=== PATIENT | male | born 2000 | race African-American/Black ===

== ENCOUNTER 2023-11-07 14:04 | Inpatient (IN) ==
--- NOTE | 2023-11-07 14:36 | Emergency Department Note ---
History of Present Illness General Chief complaint: Mental Health Evaluation Stated complaint: REQUESTING PSYCH EVAL Time Seen by Provider: 11/07/23 14:12 History of Present Illness Provider complaint: Mental health evaluation -year-old male presents the emergency department for mental health evaluation. Patient states he has been having suicidal ideations. Patient denies any plan. Patient reports he has been using cannabis. No other drugs or alcohol. No access to any firearms. Patient states he tried to cut his left upper extremity in an attempt to self-harm 2 days ago. Home Medications Medication Instructions Recorded Confirmed Type Amina 180 mg PO 1XD 11/07/23 11/07/23 History Past Med/Surg History Medical History No pertinent family history Bipolar disorder Surgical History No pertinent past surgical history Social History Smoking Status: Current every day smoker Tobacco Type: E-cigarettes / Vaping Preferred Language: Pakistani Feels Safe at Home: Yes Gender Identity: Male Physical Exam Vital Signs Vital Signs - 24 hr 11/07/23 14:08 11/07/23 16:05 Temperature 35.7 C L 36.8 C Temperature Source Temporal Artery Scan Oral Pulse Rate 93 H Pulse Rate [Radial] 74 Pulse Rhythm [Radial] Regular Pulse Strength [Radial] Normal Respiratory Rate 18 18 Respiratory Effort / Characteristics Non-Labored Respiratory Depth Normal Blood Pressure 149/90 H Blood Pressure [Left Arm] 128/74 Blood Pressure Mean 109 Blood Pressure Mean [Left Arm] 92 Pulse Oximetry 98 99 Oxygen Delivery Method Room Air Room Air Sepsis Recent Fever Within 48 Hours No Sepsis New/Unexplained Change in Mental Status No Sepsis Action Taken by Nursing No Action Required Physical Exam GENERAL: oriented to person, place, and time. appears well-developed and well- nourished. HENT: Exam performed. - Head: Normocephalic and atraumatic. EYES: Conjunctivae and EOM are normal. Right eye exhibits no discharge. Left eye exhibits no discharge. No scleral icterus. NECK: Normal range of motion. Neck supple. No JVD present. CV: Normal rate, regular rhythm, normal heart sounds and intact distal pulses. There is no peripheral edema. Palpable radial pulses bue. PULM/CHEST: Effort normal and breath sounds normal. No respiratory distress. No stridor. no wheezes. no rales. ABD: The abdomen is soft. There is no tenderness. NEURO: Motor and sensation grossly intact. SKIN: Abrasions to left upper extremity. PSYCH: Suicidal ideation. Course Course 141: The patient was evaluated in room A7. A complete history and physical exam was performed 1740: Vital signs stable. Patient medically cleared. Patient accepted to 3 S. Administered Medications Nicotine (Nicotine 14 Mg/24 Hr Patch) [facility] [place]: 12/07/23 15:59 Last Admin: 11/07/23 16:44 Dose: 14 mg Documented By: HARDEEP Medical Decision Making Laboratory Data Attestation: I reviewed the patient's lab results. 11/07/23 14:35 11/07/23 14:35 Lab Results 11/07/23 11/07/23 Range/Units 14:21 14:35 WBC 7.71 (4.8-10.8) K/ul RBC 5.69 (4.70-6.10) M/uL Hgb 16.3 (14.0-18.0) g/dl Hct 47.8 (42.0-52.0) % MCV 84.0 (80.0-100.0) fL MCH 28.6 (25.0-34.0) pg MCHC 34.1 (32.0-36.0) g/dL RDW Std Deviation 38.6 (36.4-46.3) fL RDW Coeff of Laury 12.6 (11.5-14.5) % Plt Count 273 (130-400) K/uL MPV 11.1 (9.4-12.4) fL Immature Gran % (Auto) 0.5 % Neut % (Auto) 52.3 % Lymph % (Auto) 38.3 % Creek % (Auto) 6.7 % Eos % (Auto) 1.6 % Baso % (Auto) 0.6 % Neut # (Auto) 4.03 (1.40-6.50) K/uL Lymph # (Auto) 2.95 (1.20-3.40) K/uL Creek # (Auto) 0.52 (0.11-0.59) K/uL Eos # (Auto) 0.12 (0.00-0.50) K/uL Baso # (Auto) 0.05 (0.00-0.20) K/uL Immature Gran # (Auto) 0.04 (0.01-0.20) K/uL Sodium 137 (136-145) mmol/L Potassium 3.9 (3.5-5.1) mmol/L Chloride 103 (98-107) mmol/L Carbon Dioxide 25 (21-32) mmol/L Anion Gap 9 (3-11) BUN 12 (6-23) mg/dl Creatinine 0.91 (0.6-1.4) mg/dl Est Cr Clr Drug Dosing 176.6 ml/min Est GFR ( Amer) 137.2 ml/min Est GFR (Non-Af Amer) 118.4 ml/min BUN/Creatinine Ratio 13.2 (10-20) Glucose 150 H (70-99(Fasting)) mg/dl Calcium 9.6 (8.6-10.3) mg/dl Total Bilirubin 0.5 (0.2-1.0) mg/dl AST 74 H (13-39) U/L ALT 140 H (7-52) U/L Alkaline Phosphatase 99 (34-104) U/L Total Protein 7.3 (6.0-8.3) gm/dl Albumin 4.6 (3.4-5.0) gm/dl Globulin 2.7 (2.5-4.0) gm/dl Albumin/Globulin Ratio 1.7 (0.9-2) TSH 3.088 (0.300-4.500) uIu/ml Urine Color Dark Yellow Urine Appearance Clear (Clear) Urine pH 5.5 (4.5-7.5) Ur Specific Petroleum 1.030 (1.000-1.030) Urine Protein Trace H (Negative) Urine Glucose (UA) Negative (Negative) Urine Ketones Negative (Negative) Urine Blood Negative (Negative) Urine Nitrite Negative (Negative) Urine Bilirubin Negative (Negative) Urine Urobilinogen Negative (Negative) Ur Leukocyte Esterase Negative (Negative) Urine WBC (Auto) 1-5 (0-5) /hpf Urine RBC (Auto) 0-4 (0-4) /hpf U Hyaline Cast (Auto) 1-5 (0-5) /lpf U Epithel Cells (Auto) 10-20 H (0-5) /lpf Urine Bacteria (Auto) Negative (Negative) Salicylates < 3.0 L (3.0-30) mg/dl Urine Opiates Screen Neg (Neg) Ur Methadone, Qual Neg (Neg) Acetaminophen < 3 L (10-30) ug/ml Urine Barbiturates Neg (Neg) Ur Phencyclidine (PCP) Neg (Neg) U Amphetamin/Meth Scrn Neg (Neg) MDMA (Ecstasy) Screen Neg (Neg) U Benzodiazepines Scrn Neg (Neg) Ur Cocaine Metabolite Neg (Neg) U Marijuana (THC) Screen Pos H (Neg) Ethyl Alcohol mg/dL < 10.0 (<10.0) mg/dl SARS-CoV-2, RNA, NAAT NEGATIVE (NEGATIVE) MDM Narrative 1412: The patient was evaluated in room A7. A complete history and physical exam was performed 1740: Vital signs stable. Patient medically cleared. Patient accepted to 3 S. Impression & Plan Bipolar disorder, Depression with suicidal ideation Discharge Plan Visit Data Chief Complaint: Mental Health Evaluation Stated Complaint: REQUESTING PSYCH EVAL ED Provider: Jose A Goodman Discharge Problem: Bipolar disorder, Depression with suicidal ideation Patient Disposition: Admitted As Inpatient Discharge Instructions Interventions: ED Discharge Assessment Last Done: 11/07/23 17:44
[2023-11-07 14:45] LABS: Appearance Urine Clear (Clear); Bacteria Urine Automated Negative (Negative); Bilirubin Urine Negative (Negative); Blood Urine Negative (Negative); Color Urine Dark Yellow; Glucose Urine UA Negative (Negative); Ketones Urine Negative (Negative); Leukocyte Esterase Urine Negative (Negative); Nitrite Urine Negative (Negative); Protein Urine Trace (Negative); RBC Urine Automated 0-4 /hpf (0-4); Urobilinogen Urine Negative (Negative); pH Urine 5.5 (4.5-7.5)
[2023-11-07 15:07] LABS: Amphetamines+Metham, Urine Neg (Neg); Barbiturates, Urine Neg (Neg); Benzodiazepine, Urine Neg (Neg); Cocaine, Urine Neg (Neg); MDMA (Ecstacy), Urine Neg (Neg); Marijuana, Urine Pos (Neg); Methadone, Urine Neg (Neg); Opiate, Urine Neg (Neg); Phencyclidine, Urine Neg (Neg)
[2023-11-07 15:16] LABS: Basophils # (auto) 0.05 K/uL (0.00-0.20); Basophils % (auto) 0.6 %; Eosinophils # (auto) 0.12 K/uL (0.00-0.50); Eosinophils % (auto) 1.6 %; Hematocrit (blood only) 47.8 % (42.0-52.0); Hemoglobin 16.3 g/dl (14.0-18.0); Immature Granulocytes # (auto) 0.04 K/uL (0.01-0.20); Immature Granulocytes % (auto) 0.5 %; Lymphocytes # (auto) 2.95 K/uL (1.20-3.40); Lymphocytes % (auto) 38.3 %; Mean Corpuscular Hemoglobin 28.6 pg (25.0-34.0); Mean Corpuscular Hgb Conc 34.1 g/dL (32.0-36.0); Mean Platelet Volume 11.1 fL (9.4-12.4); Monocytes # (auto) 0.52 K/uL (0.11-0.59); Monocytes % (auto) 6.7 %; Neutrophils # (auto) 4.03 K/uL (1.40-6.50); Neutrophils % (auto) 52.3 %; Platelet Count 273 K/uL (130-400); RDW Coefficient of Variation 12.6 % (11.5-14.5); RDW Standard Deviation 38.6 fL (36.4-46.3); Red Blood Count 5.69 M/uL (4.70-6.10); White Blood Count 7.71 K/ul (4.8-10.8)
[2023-11-07 15:21] LABS: Albumin Globulin Ratio 1.7 (0.9-2); Albumin Level 4.6 gm/dl (3.4-5.0); BUN Creatinine Ratio 13.2 (10-20); Bilirubin,Total 0.5 mg/dl (0.2-1.0); Calcium 9.6 mg/dl (8.6-10.3); Creatinine Clr Calc Pharmacy 176.6 ml/min; Est GFR (African American) 137.2 ml/min; Est GFR (Non-African American) 118.4 ml/min; Globulin 2.7 gm/dl (2.5-4.0); Potassium 3.9 mmol/L (3.5-5.1); Total Protein 7.3 gm/dl (6.0-8.3)
[2023-11-07 15:29] LABS: Acetaminophen < 3 ug/ml (10-30); Salicylate < 3.0 mg/dl (3.0-30)
[2023-11-07 15:36] LABS: Thyroid Stimulating Hormone 3.088 uIu/ml (0.300-4.500)
[2023-11-07] MEDS: NICOTINE 14 MG/24 HR PATCH TD SCH (16:44)
[2023-11-07] MEDS ORDERED: ACETAMINOPHEN 325 MG TAB PO PRN (18:03)
[2023-11-07] MEDS ORDERED: hydrOXYzine HCl 25 MG TAB PO PRN (18:03)
[2023-11-07] MEDS ORDERED: ALUMINUM/MAGNESIUM SUSP 30 ML UDC PO PRN (18:03)
[2023-11-07] MEDS ORDERED: BISMUTH SUBSALICYLATE LIQD 236 ML PO PRN (18:03)
[2023-11-07] MEDS ORDERED: MAGNESIUM HYDROXIDE SUSP 30 ML UDC PO PRN (18:03)
[2023-11-07] MEDS ORDERED: SODIUM CHLORIDE 0.65% NA SOLN 45 ML (OCEAN) PRN (18:03)
[2023-11-07] MEDS ORDERED: NICOTINE POLACRILEX 2 MG GUM MT PRN (19:15)
[2023-11-07] MEDS: hydrOXYzine HCl 25 MG TAB PO PRN (22:53)
--- OUTSIDE RECORDS SUMMARY | 2023-11-08 07:19 | External Medical Summary | Continuity of Care Document ---
Author Name Unknown Organization [place] [id number] [place] [phone] Care Team Providers Care Silk Printer Name Role Phone LuisaroxanneTeMarcy Primary Care Physician [phone] [facility] [id number] Date(s): 09/23/23 - 09/23/23 [facility] [address] [address] [phone] Encounter Diagnosis Body mass index [BMI] 34.0-34.9, adult(Discharge Diagnosis) - 09/23/23 Discharge Disposition: Home or Self Care Attending Physician: MD Cornell, Manuel Song Allergies, Adverse Reactions, Alerts No Known Medication Allergies Medications ARIPiprazole 10 mg oral tablet Start: 07/14/23 11:31:00 EST, 1 tab, PO, Daily, Disp# 30 tab, Refills: 1, Pharmacy: [facility] Start Date: 07/14/23 Stop Date: 09/12/23 Status: Ordered buPROPion 300 mg/24 hours (XL) oral tablet, extended release Start: 08/02/23 10:26:00 EST, 1 tab, PO, q24h, Disp# 30 tab, Refills: 3, TAKE 1 TABLET BY MOUTH EVERY DAY, Pharmacy: [facility] Start Date: 08/02/23 Stop Date: 11/30/23 Status: Ordered Descovy Blister Pack 200 mg-25 mg oral tablet Start: 06/14/23 9:46:00 EDT, 1 tab, PO, Daily, Disp# 90 tab, Refills: 1, Pharmacy: [facility] Start Date: 06/14/23 Status: Ordered famotidine Start: 07/14/23 10:37:00 EST Start Date: 07/14/23 Status: Ordered hydrOXYzine hydrochloride 50 mg oral tablet Start: 07/14/23 11:33:00 EST, 1 tab, PO, bid, Disp# 60 tab, Refills: 1, PRN: as needed for anxiety,Pharmacy: [id number] Start Date: 07/14/23 Stop Date: 09/12/23 Status: Ordered Zofran 4 mg oral tablet Start: 08/02/23 10:26:00 EST, 1 tab, PO, Daily, Disp# 14 tab, Pharmacy: [id number] Start Date: 08/02/23 Stop Date: 08/16/23 Status: Ordered Mental Status 09/23/23 Barriers to Learning one year None evide nt Mandatory Health Literacy Documentation Yes Health Literacy Communication Barriers N ever Primary Language Danish Problem List Condition Confirmation Course Effective Dates Status Health St atus Informant Anxiety Confirmed Active Bipolar disorder Confirmed Active GERD without esophagitis Confirmed Active Chronic nausea Confirmed Active Tobacco user Confirmed Active Diagnosis Diagnosis Type Effective Dates Health Status Cl inical Service Informant Body mass index [BMI] 34.0-34.9, adult Discharge Diagnosis 09/23/23 Non-Specified Procedures Procedure Date Related Diagnosis Body Site Status REMOVAL OF TONSILS Comple wayne Vital Signs Most recent to oldest [Reference Range]: 1 Height 190.9 cm (09/23/23 8:31 AM) Patient Weight 124 kg (09/23/23 8:31 AM) Body Mass Index 34.03 kg/m2 (09/23/23 8:31 AM) Temperature [36.5-37.9 DegC] 37.0 DegC (09/23/23 8:31 AM) Heart Rate 95 bpm (09/23/23 8:31 AM) Respiratory Rate 18 br/min (09/23/23 8:31 AM) Blood Pressure 138/92mmHg (09/23/23 8:31 AM) Cuff Pulse Pressure 46 mmHg (09/23/23 8:31 AM) Social History Social History Type Response Smoking Status Never smoked cigaret mirza Sex Male Patient Care team information Care Team Personnel Name: DO Lorenzo Amanda Position: Resident Member Role: Lifetime Relationship Address: Address: [address] [address] [place] Name: DO Ricketts Sameer Position: Resident Member Role: Lifetime Relationship Address: Address: [address] [address] [place] Care Team Related Persons Name: ELICEO JOHN Address: home [address] [facility], [address]
--- OUTSIDE RECORDS SUMMARY | 2023-11-08 07:19 | External Medical Summary | Continuity of Care Document ---
Author Name Unknown Organization [place] [address] [address] [place] [phone] [facility] [id number] Date(s): 06/14/23 - 06/14/23 [facility] [address] [facility] [address] [facility] [address] [place] [address] [phone] Encounter Diagnosis Body mass index [BMI] 34.0-34.9, adult(Discharge Diagnosis) - 06/14/23 Medication monitoring encounter(Discharge Diagnosis) - 06/14/23 Sexual behavior with high risk of exposure to communicable disease(Discharge Diagnosis) - 06/14/23 Encounter for therapeutic drug level monitoring(Final) - Other specified personal risk factors, not elsewhere classified(Final) - High risk heterosexual behavior(Final) - Obesity, unspecified(Final) - At risk for HIV due to bisexual contact(Discharge Diagnosis) - 06/14/23 Skin lesion of right leg(Discharge Diagnosis) - 06/14/23 Obesity(Discharge Diagnosis) - 06/14/23 Bipolar disorder(Discharge Diagnosis) - 06/14/23 Discharge Disposition: Home or Self Care Attending Physician: MD Melton Christopher Assessment and Plan Extracted from: Title:Establish: PrEP, Skin Lesion Author:Isamar fernandez DO, Amanda Date:06/14/23 1.At risk for HIV due to b isexual contact Chronic condition, stable Goal:_ Data:_ Plan: _PreP labs ordered and order placed for Descovy. Pt opting to wait until lab results return to start Descovy. 2.Skin lesion of right leg Chronic condition, stable Goal:_ Data:_ Plan: Appears to be a dermatofibroma, benign lesion. Advised he can try OTC lotions or vitamin E oil to soften the area, but no medical interventions like biopsy would be needed. 3.Obesity Chronic condition, stable Goal:_ Data:_ Plan: _Referral placed to field case manager to discuss weight loss lifestyle changes. Pt inquired about medication options and informed that should try lifestyle first before considering medication options 4.Bipolar disorder Chronic condition, stable Goal:_ Data:_ Plan: _Continue current regime Pt to f/u in 1-2 weeks to discuss nausea/gagging since mono 1 year ago Medications ARIPiprazole 5 mg oral tablet TAKE 1 TABLET BY MOUTH EVERY DAY Start Date: 06/14/23 Status: Ordered buPROPion 300 mg/24 hours (XL) oral tablet, extended release TAKE 1 TABLET BY MOUTH EVERY DAY Start Date: 06/14/23 Status: Ordered cloNIDine 0.1 mg oral tablet 1 tab, PO, Daily, TAKE 1 TABLET BY MOUTH AT BEDTIME Start Date: 06/14/23 Status: Ordered Descovy Blister Pack 200 mg-25 mg oral tablet Start: 06/14/23 9:46:00 EDT, 1 tab, PO, Daily, Disp# 90 tab, Refills: 1, Pharmacy: [id number] Start Date: 06/14/23 Status: Ordered Mental Status 06/14/23 Barriers to Learning one year None evide nt Mandatory Health Literacy Documentation Yes Health Literacy Communication Barriers N ever Primary Language Latvian Problem List Condition Confirmation Course Effective Dates Status Health St atus Informant Bipolar disorder Confirmed Active GERD without esophagitis Confirmed Active Diagnosis Diagnosis Type Effective Dates Health Status Clinical Service Informant Body mass index [BMI] 34.0-34.9, adult Discharge Diagnosis 06/14/23 Non-Specified Bipolar disorder Discharge Diagnosis 06/14/23 Obesity Discharge Diagnosis 06/14/23 Non-Specified At risk for HIV due to bisexual contact Discharge Diagnosis 06/14/23 Non-Specified Medication monitoring encounter Discharge Diagnosis 06/14/23 Non-Specified Sexual behavior with high risk of exposure to communicable disease Discharge Diagnosis 06/14/23 Non-Specified Skin lesion of right leg Discharge Diagnosis 06/14/23 Procedures Procedure Date Related Diagnosis Body Site Status REMOVAL OF TONSILS Comple wayne Results Laboratory List Name Date Basic Metabolic Panel (BASIC METAB PANEL ) 06/14/23 Chlamydia and Gonorrhoeae, by PCR (CT AN D GC BY PCR) 06/14/23 Complete Blood Count w Differential (CBC ,DIFFH) 06/14/23 HIV Screen w Reflex (HIV AG/AB SCREENING ) 06/14/23 Hepatitis B Surface Antibody (HEP B SURF AB) 06/14/23 Hepatitis C Antibody (HEP C AB) 06/14/23 Lipid Profile (LIPOPROTEINS) 06/14/23 Thyroid Stimulating Hormone (TSH) Treponemal Ab Screen (TREPONEMAL AB SCRE EN) 06/14/23 Most recent to oldest [Reference Range]: 1 eGFR CKD-EPI [>60 mL/min/1.73 m2] >90 mL /min/1.73 m2 1 (06/14/23 10:20 AM) Chlamydia trachomatis, by PCR [NEG] NEGA TIVE 2 *Unknown* (06/14/23 10:20 AM) Neisseria gonorrhoeae, by PCR [NEG] NEGA TIVE 3 *Unknown* (06/14/23 10:20 AM) HIV Ag/Ab Screening [NR] NONREACTIVE *Unknown* (06/14/23 10:20 AM) Non-HDL 211 mg/dL 4 (06/14/23 10:20 AM) HBsAb Concentration [NR mIU/mL] 48.7 mIU /mL 5 *Abnormal* (06/14/23 10:20 AM) Estimated CrCl 154.48 mL/min (06/14/23 12:17 PM) Treponemal Ab Screen [NR] NONREACTIVE *Unknown* (06/14/23 10:20 AM) MPV [9.0-12.2 fL] 11.1 fL (06/14/23 10:20 AM) Immature Gran% 0.4 % (06/14/23 10:20 AM) Neut% 45.0 % (06/14/23 10:20 AM) Lymph% 41.4 % (06/14/23 10:20 AM) Labette% 10.7 % (06/14/23 10:20 AM) Baso% 0.3 % (06/14/23 10:20 AM) Eos% 2.2 % (06/14/23 10:20 AM) Immat Gran, Abs [0-0.4 K/uL] 0.03 K/uL 6 (06/14/23 10:20 AM) Neut, Abs [2.0-7.7 K/uL] 3.23 K/uL (06/14/23 10:20 AM) Lymph, Abs [1.0-3.4 K/uL] 2.97 K/uL (06/14/23 10:20 AM) Labette, Abs [0-1.0 K/uL] 0.77 K/uL (06/14/23 10: AM) Baso, Abs [0-0.1 K/uL] 0.02 K/uL (06/14/23 10: AM) Eos, Abs [0-0.5 K/uL] 0.16 K/uL (06/14/23 10: AM) Type of Diff: AUTO *Unknown* (06/14/23: AM) RDW [11.5-14.2 %] 12.7 % (06/14/23 10: AM) Anion Gap [5-14 mmol/L] 6 mmol/L (06/14/23: AM) BUN [7-20 mg/dL] 10 mg/dL (06/14/23: AM) Ca [8.4-10.2 mg/dL] 9.7 mg/dL (06/14/23 10: AM) Chol/HDL 6 (06/14/23: AM) Chol [125-200 mg/dL] 256 mg/dL *HI* (06/14/23: AM) Cl- [96-107 mmol/L] 105 mmol/L (06/14/23: AM) HCO3 [22-30 mmol/L] 29 mmol/L (06/14/23: AM) Cret [0.70-1.30 mg/dL] 1.03 mg/dL (06/14/23: AM) Glu [74-106 mg/dL] 123 mg/dL *HI* (06/14/23: AM) HBsAb [NR] REACTIVE *Abnormal* (06/14/23: AM) Hct [39-48 %] 49.0 % *HI* (06/14/23: AM) HCV Ab [NR] NONREACTIVE *Unknown* (06/14/23: AM) HDL [>35 mg/dL] 45 mg/dL (06/14/23 10: AM) Hgb [13.0-17.0 g/dL] 16.3 g/dL (06/14/23: AM) K [3.5-5.1 mmol/L] 4.8 mmol/L (06/14/23 10:20 AM) LDL Chol, Calculated [50-130 mg/dL] 174 mg/dL *HI* (06/14/23 10:20 AM) MCH [28-33 pg] 29.4 pg (06/14/23 10:20 AM) MCHC [32-36 g/dL] 33.3 g/dL (06/14/23 10:20 AM) MCV [81-96 fL] 88.3 fL (06/14/23 10:20 AM) Na [137-145 mmol/L] 140 mmol/L (06/14/23 10:20 AM) Plts [150-350 K/uL] 250 K/uL (06/14/23 10:20 AM) RBC [4.40-5.60 M/uL] 5.55 M/uL (06/14/23 10:20 AM) TG [<200 mg/dL] 185 mg/dL (06/14/23 10:20 AM) TSH [0.47-4.68 uIU/mL] 2.26 uIU/mL 7 (06/14/23 10:20 AM) WBC [4.0-10.4 K/uL] 7.18 K/uL (06/14/23 10:20 AM) 1Result Comment: Testing Performed By: Dept [facility] [address], [address] [place] [address] 2Result Comment: Chlamydia trachomatis DNA, if present could not be detected. A negative resultdoes not preclude the presence of C. trachomatis infection because results depend on adequate specimen collection, absence of inhibitors, and sufficient DNA rylee detected. 3Result Comment: Neisseria gonorrhoeae DNA, if present could not be detected. A negative resultdoes not preclude the presence of N. gonorrhoeae infection because results depend on adequate specimen collection, absence of inhibitors, and sufficient DNA rylee detected. 4Result Comment: Testing Performed By: Dept of Pathology [facility], [address] [facility] [place] [address] 5Result Comment: U.S. Center for Disease Control and Prevention (CDC) recommends a cutoff of 10 mIU/mL to determine the HBV immune status of an individual. 6Result Comment: Testing Performed By: Dept of Pathology [facility] [address], [address], [place] [address] 7Result Comment: Testing Performed By: Dept of Pathology [facility] [address], [address], [place] [address] Vital Signs Most recent to oldest [Reference Range]: 1 Height 186.5 cm (06/14/23 9:03 AM) Patient Weight 121.4 kg (06/14/23 9:03 AM) Body Mass Index 34.9 kg/m2 (06/14/23 9:03 AM) Heart Rate 83 bpm (06/14/23 9:03 AM) Respiratory Rate 12 br/min (06/14/23 9:03 AM) Blood Pressure 128/78mmHg (06/14/23 9:03 AM) Cuff Pulse Pressure 50 mmHg (06/14/23 9:03 AM) Social History Social History Type Response Smoking Status Never smoked cigaret mirza Sex Male FCM Outpt Note * MD Cornell, Manuel P: MODIFY DO Lorenzo Amanda: PERFORM Event Display: FCM Outpt Note Authored Date: Chief Complaint EST Care just moved to the area, nausea and gag reflex since having mono a year ago, right leg wound that hasnt healed x 1 year, would like to restart prep therapy History of Present Illness Pt is a 22 yo male who presents today to establish care after moving here from [place] to 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 and for #Inquiry about PrEP - sexual practices: men and women,not currently active, - uses condoms most of the time - on prep now, "2-1-1 on demand", no active recently - no hx of STIs - was getting tests every 3 months while on PreP, on Descovy now, tried Truvada before but it made him very nauseated, tolerating Descovy well - last tests were in December or so, usually gets oral and rectal swabs #R leg wound - started 1 year ago - not better or worse since he noticed it then - small area of hard skin, no trauma noted, just woke up and noticed it - not bothersome just been there a year, never itchy or bleeding #Obesity - wants more information on weight loss - states he has tried to diet in the past #Bipolar - sees psychiatry - had run out of meds 3 weeks ago but got into psych last week who refilled all his meds - states that when hes on his meds they work well for him and are well tolerated Review of Systems Constitutional: No fever, no chills, Respiratory: No shortness of breath, no cough, Cardiovascular:No chest pain, no palpitations, Physical Exam Vitals & Measurements HR:83(Monitored) RR:12 BP:128/78 SpO2:98% HT:186.5cm WT:121.400kg(Dosing) WT:121.4kg BMI:34.9 PHQ2 Data(Data Documented on:06/14/2023 09:03) Emotional health assessment POSITIVE PHQ-9 Data(Data Documented on:06/14/2023 09:05) PHQ-9 Severity Score:18 Thoughts that you would be better off or of hurting yourself in some way?Not at All Depression Risk:Elevated General Anxiety Disorder Screening: GREGORY-7 Score:7 GREGORY-7 Problem Severity:Somewhat Difficult General:Alert and oriented, pleasant individual in no acute distress, HEENT: Normocephalic, moist oral mucosa, Cardiovascular:Regular rate and rhythm, no murmur, Respiratory:Lungs clear to auscultation b/l, no wheezes or rhonchi, Gastrointestinal:Soft and nontender, nondistended, bowel sounds active Integumentary:Warm, pink, dry, Psych: Mood-affect congruence. Extremities: Callused lesion on R thigh, no surrounding erythema Assessment/Plan 1.At risk for HIV due to bisexual contact Chronic condition, stable Goal:_ Data:_ Plan: _PreP labs ordered and order placed for Descovy. Pt opting to wait until lab results return to start Descovy. 2.Skin lesion of right leg Chronic condition, stable Goal:_ Data:_ Plan: Appears to be a dermatofibroma, benign lesion. Advised he can try OTC lotions or vitamin E oil to soften the area, but no medical interventions like biopsy would be needed. 3.Obesity Chronic condition, stable Goal:_ Data:_ Plan: _Referral placed to field case manager to discuss weight loss lifestyle changes. Pt inquired about medication options and informed that should try lifestyle first before considering medication options 4.Bipolar disorder Chronic condition, stable Goal:_ Data:_ Plan: _Continue current regime Pt to f/u in 1-2 weeks to discuss nausea/gagging since mono 1 year ago Attestation I saw patient and was present for the joshi portions of the history and physical. I agree with theresident's note and plan as documented in the resident's note. 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 Denise Sarabia Problem List/Past Medical History Ongoing Bipolar disorder GERD without esophagitis Procedure/Surgical History REMOVAL OF TONSILS Medications ARIPiprazole(ARIPiprazole 5 mg oral tablet) buPROPion(buPROPion 300 mg/24 hours (XL) oral tablet, extended release) cloNIDine(cloNIDine 0.1 mg oral tablet), 0.1 mg= 1 tab, PO, Daily emtricitabine-tenofovir(Descovy Blister Pack 200 mg-25 mg oral tablet), 1 tab, PO, Daily, 1 refills Social History Smoking Status Never smoked cigarettes Family History Cardiovascular disease: Mother. Health Status Family Member(s) Recommendations Health Maintenance Pending(in the next year) OverDue Adult Influenza Vaccine due02/26/23and every 1year Satisfied(in the past 1 year) There are no satisfied recommendations within the defined date range Electronic Signature on File Electronically Reviewed/Signed by: Marcy Lorenzo DO Author Signature Dt/Tm:06/14/2023 11:21 AM Resident Department of Family Medicine Electronically Reviewed/Signed by: Manuel Sarabia MD Cosigner Signature Dt/Tm: 06/14/2023 01:40PM Department of Family Medicine AB Patient Care team information Care Team Personnel Name: DO Lorenzo Amanda Position: Resident Member Role: Lifetime Relationship Address: Address: [facility] [address] [place] [address] [place] Care Team Related Persons Name: ELICEO JOHN Address: home [address] [place] [address]
--- OUTSIDE RECORDS SUMMARY | 2023-11-08 07:19 | External Medical Summary | Continuity of Care Document ---
Author Name Unknown Organization [facility] [address] [place] [address] [phone] Encounter [facility] [id number] Date(s): 06/23/23 - 06/23/23 [facility] [address] [place] [address] [phone] Discharge Disposition: Home or Self Care Attending Physician: MD Melton Christopher Medications ARIPiprazole 5 mg oral tablet TAKE [...] Daily, Disp# 90 tab, Refills: 1, Pharmacy: [id number] Start Date: 06/14/23 Status: Ordered Problem List Condition Confirmation Course Effective Dates Status [facility] Informant Bipolar disorder Confirmed Active GERD without esophagitis Confirmed Active Procedures Procedure Date Related Diagnosis Body Site Status REMOVAL OF TONSILS Comple wayne Social History Social History Type Response Smoking Status Never smoked cigaret mirza Sex Male Patient Care team information Care Team Personnel Name: DO Lorenzo Amanda Position: Resident Member Role: Lifetime Relationship Address: Address: [address] [place] [address] [place] Care Team Related Persons Name: ELICEO JOHN Address: home [address] [place] [address]
[2023-11-08] MEDS ORDERED: NICOTINE 14 MG/24 HR PATCH TD SCH (09:00)
--- NOTE | 2023-11-08 14:59 | History & Physical ---
Date of Service November 08, 2023 Impression / Recommendations Impression 23 year old non binary patient who presented due to increasing depression and suicidal thoughts with no plan. Patient has a previous diagnosis of Bipolar 2 Disorder but the patient and I also suspect that he may have borderline personality disorder. (1) Depression with suicidal ideation: (2) Borderline personality disorder: Plan Admit to psychiatric unit. Re-start psychiatric medication: Wellbutrin 150 daily and Abilfy 5 mg at bedtime. Participate in all milieu therapy; patient and I both suspect Borderline Personality Disorder may be contributing to his distress. 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 They currently live alone but with a dog (who they states is very important to them), who has a questionable history of bipolar 2 disorder . They were admitted on 11/07/23 17:55 on a 201 voluntary basis. Chief Complaint "I need new meds". History of Present Illness 23 year old non-binary patient who presented to the hospital with increasing suicidal thoughts but no plan. They say that spring break was very difficult because they are very lonely and feel that they have no friends. They [facility] but was told that they were not in crisis so it spiraled until they were in crisis. Past Psychiatric History Previous Psych History: Patient has seen a therapist in the past but she no longer takes their insurance. They received their prescriptions from a Nurse Practitioner. Current Psychiatric Diagnosis: Depression, Anxiety, Bipolar 2 Outpatient Services: previously therapy but his psychologist doesn't take his insurance anymore Previous Psych Admissions: no previous psych admissions History of Previous Suicide Attempt: No Past Medication Trials: Wellbutrin, Abilify Allergies Allergy/AdvReac Type Severity Reaction Status Date / Time Steri Strips AdvReac Mild Rash Uncoded 11/07/23 19:43 Home Medications Medication Instructions Recorded Confirmed Type Amina 180 mg PO 1XD 11/07/23 11/07/23 History Family History Family History of: Depression Family Mental Health History Comment: undiagnosed - maternal grandmother, mother abused alcohol and had depression paternal grandmother was unstable Alcohol History Hx of Alcohol Use Over the Past 12 Months: No AUDIT Total Score: 1 Smoking Use Have You Smoked or Used Tobacco Products in the Last 30 Days: Yes tobacco type: e-cigarettes Smoking Status: Current every day smoker Smoking packs per day: 1 Substance History Hx of Prescription Med Misuse Over the Past 12 Months: No Hx of Over the Counter Med Misuse Over the Past 12 Months: No Hx of Inhalent Misuse Over the Past 12 Months: No Hx of Organic Substance Use Over the Past 12 Months: Yes (Delta 9) Hx of Illegal Substances/Street Drug Use Over Past 12 Months: No Problems as a Result of Past Substance Use: None Identified Personal History Living Arrangements: Apartment Childhood: Patient is from [place] and completed their undergraduate degree at [employer]. 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 Required: No Beliefs That Will Affect Care: None Feels Safe at Home: Yes Gender Identity: Nonbinary Assistive Devices: Glasses Physical Exam Psychiatric: A+Ox3, euthymic affect Orientation: alert and oriented x 3 Apperance: appropriately dressed, appropriately groomed and appeared stated age Eye Contact: good eye contact Motor Behavior: steady gait and station and no abnormal motor movements Speech: normal rate/rhythm/volume of speech Affect: euthymic affect Mood: no depressed mood and no anxious mood Thought Process: goal directed thought process, linear/logical thought process and clear/coherent thought process Thought Content: reality based without delusions Suicidal Thoughts: denies suicidal thoughts, denies suicidal plan and denies suicidal intent Homicidal Thoughts: denies homicidal thoughts, denies homicidal plan and denies homicidal intent Hallucinations: no auditory hallucinations, no visual hallucinations, no tactile hallucinations and no gustatory hallucinations Cognition: recent memory grossly intact, remote memory grossly intact, attention grossly intact and language grossly intact Estimated Intelligence: + above average estimated intelligence Insight: good insight Judgment: good judgement Vital Signs (Past 24 Hours): Last Vital Signs Temp 36.7 C 11/08/23 06:44 Pulse 71 11/08/23 06:45 Resp 16 11/08/23 06:44 BP 117/81 11/08/23 06:45 Pulse Ox 99 11/07/23 18:13 O2 Del Method Room Air 11/07/23 18:13 Physical Examination: A physical exam was performed in the ER prior to admission to the unit by the ER provider. I accept that physical as correct/medical clearance for the inpatient physical exam. Results & Data ([facility]) Laboratory Results Laboratory Results - last 24 hr 11/07/23 11/07/23 14:21 14:35 WBC 7.71 RBC 5.69 Hgb 16.3 Hct 47.8 MCV 84.0 MCH 28.6 MCHC 34.1 RDW Std Deviation 38.6 RDW Coeff of Laury 12.6 Plt Count 273 MPV 11.1 Immature Gran % (Auto) 0.5 Neut % (Auto) 52.3 Lymph % (Auto) 38.3 Divide % (Auto) 6.7 Eos % (Auto) 1.6 Baso % (Auto) 0.6 Neut # (Auto) 4.03 Lymph # (Auto) 2.95 Divide # (Auto) 0.52 Eos # (Auto) 0.12 Baso # (Auto) 0.05 Immature Gran # (Auto) 0.04 Sodium 137 Potassium 3.9 Chloride 103 Carbon Dioxide 25 Anion Gap 9 BUN 12 Creatinine 0.91 Est Cr Clr Drug Dosing 176.6 Est GFR ( Amer) 137.2 Est GFR (Non-Af Amer) 118.4 BUN/Creatinine Ratio 13.2 Glucose 150 H Calcium 9.6 Total Bilirubin 0.5 AST 74 H ALT 140 H Alkaline Phosphatase 99 Total Protein 7.3 Albumin 4.6 Globulin 2.7 Albumin/Globulin Ratio 1.7 TSH 3.088 Urine Color Dark Yellow Urine Appearance Clear Urine pH 5.5 Ur Specific Gates 1.030 Urine Protein Trace H Urine Glucose (UA) Negative Urine Ketones Negative Urine Blood Negative Urine Nitrite Negative Urine Bilirubin Negative Urine Urobilinogen Negative Ur Leukocyte Esterase Negative Urine WBC (Auto) 1-5 Urine RBC (Auto) 0-4 U Hyaline Cast (Auto) 1-5 U Epithel Cells (Auto) 10-20 H Urine Bacteria (Auto) Negative Salicylates < 3.0 L Urine Opiates Screen Neg Ur Methadone, Qual Neg Acetaminophen < 3 L Urine Barbiturates Neg Ur Phencyclidine (PCP) Neg U Amphetamin/Meth Scrn Neg MDMA (Ecstasy) Screen Neg U Benzodiazepines Scrn Neg Ur Cocaine Metabolite Neg U Marijuana (THC) Screen Pos H U Marijuana THC Carboxy Pending Drug Screen Comment Pending Ethyl Alcohol mg/dL < 10.0 SARS-CoV-2, RNA, NAAT NEGATIVE Current Inpatient Medications Current Inpatient Medications: Current Inpatient Medications Acetaminophen (Acetaminophen 325 Mg Tab) 650 mg PO Q4H PRN PRN Reason: Headache or Minor Fever Stop: 12/07/23 18:02 Al Hydrox/Mg Hydrox/Simethicone (Aluminum/Magnesium Susp 30 Ml Udc) 30 ml PO Q4H PRN PRN Reason: GI Upset Stop: 12/07/23 18:02 Bismuth Subsalicylate (Bismuth Subsalicylate Liqd 236 Ml) 15 ml PO PRN PRN PRN Reason: Loose Stool Stop: 12/07/23 18:02 Hydroxyzine HCl (Hydroxyzine Hcl 25 Mg Tab) 50 mg PO HSZ PRN PRN Reason: Insomnia Stop: 12/07/23 18:02 Last Admin: 11/07/23 22:53 Dose: 50 mg Hydroxyzine HCl (Hydroxyzine Hcl 25 Mg Tab) 25 mg PO Q4H PRN PRN Reason: Anxiety Stop: 12/07/23 18:02 Magnesium Hydroxide (Magnesium Hydroxide Susp 30 Ml Udc) 30 ml PO DAILY PRN PRN Reason: Constipation Stop: 12/07/23 18:02 Miscellaneous (Remove Nicoderm Patch) 1 each N/A DAILY@0859 [facility] Stop: 12/08/23 08:58 Last Admin: 11/08/23 11:04 Dose: 1 each Nicotine (Nicotine 14 Mg/24 Hr Patch) 14 mg TD QAM [facility] Stop: 12/07/23 15:59 Last Admin: 11/08/23 11:04 Dose: 14 mg Nicotine Polacrilex (Nicotine Polacrilex 2 Mg Gum) 2 piece MT PRN PRN PRN Reason: Nicotine Withdrawal Symptoms Stop: 12/07/23 19:14 Sodium Chloride (Sodium Chloride 0.65% Na Soln 45 Ml (Anon Raices)) 1 - 2 sprays NA PRN PRN PRN Reason: Nasal Dryness/Congestion Stop: 12/07/23 18:02
[2023-11-08] MEDS ORDERED: ARIPiprazole 5 MG TAB PO SCH (22:00)
[2023-11-09] MEDS: FEXOFENADINE HCL 180 MG TAB PO SCH (09:25)
[2023-11-09] MEDS: buPROPion XL 150 MG TABCR PO SCH (09:25)
--- NOTE | 2023-11-09 11:13 | Discharge Summary ---
Date of Service November 09, 2023 History of Present Illness 23 year old non-binary patient who presented to the hospital with increasing suicidal thoughts but no plan. They say that spring break was very difficult because they are very lonely and feel that they have no friends. They [facility] but was told that they were not in crisis so it spiraled until they were in crisis. Physical Exam Psychiatric A+Ox3, euthymic affect Orientation: alert and oriented x 3 Apperance: appropriately dressed, appropriately groomed and appeared stated age Eye Contact: good eye contact Motor Behavior: steady gait and station and no abnormal motor movements Speech: normal rate/rhythm/volume of speech Affect: euthymic affect Mood: no depressed mood and no anxious mood Thought Process: goal directed thought process, linear/logical thought process and clear/coherent thought process Thought Content: reality based without delusions Suicidal Thoughts: denies suicidal thoughts, denies suicidal plan and denies suicidal intent Homicidal Thoughts: denies homicidal thoughts, denies homicidal plan and denies homicidal intent Hallucinations: no auditory hallucinations, no visual hallucinations, no tactile hallucinations and no gustatory hallucinations Cognition: recent memory grossly intact, remote memory grossly intact, attention grossly intact and language grossly intact Estimated Intelligence: + above average estimated intelligence Insight: good insight Judgment: good judgement Vital Signs (Past 24 Hours) Last Vital Signs Temp 36.5 C 11/09/23 10:51 Pulse 75 11/09/23 10:51 Resp 16 11/09/23 10:51 BP 106/72 11/09/23 10:51 Pulse Ox 99 11/09/23 10:51 O2 Del Method Room Air 11/07/23 18:13 A physical exam was performed in the ER prior to admission to the unit by the ER provider. I accept that physical as correct/medical clearance for the inpatient physical exam. Principal Diagnosis Major Depressive disorder BOrderline personality disorder Psychiatric Data See daily stay summary. In short, safety was maintained and the patient was cooperative with care. Medication changes included re-starting the patient on bupropion and they tolerated this well. A safety plan was completed prior to discharge. On the day of discharge, the patient denied suicidal or homicidal ideation and showed no signs of depression, oriana or psychosis. They were pleasant and cooperative throughout the stay and showed a good level of insight into their condition. They were fully in agreement that they are ready to continue treatment in the outpatient setting. Day of Discharge Assessment Today the patient voices readiness for discharge. They note improvement in mood and deny thoughts to harm self or others. Thoughts remain organized and they are improved from admission. There is no evidence of psychosis. They agree to take medications as prescribed and keep follow-up appointments. They are stable for discharge to outpatient level of care. Transition of Care Transition Of Care Record: was reviewed with the patient Advance Directives Advance Directives Information Provided: Yes Advance Directives: No Mental Health Advance Directive: No Advance Directives on File: No Living Will: No Power of Operation Agent: No Advance Directives Reason:: Declines as Mental Health Visit. 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) Supportive Family: Yes Good Rapport with Provider: Yes Antipsychotic Medications no antipsychotics prescribed Discharge Data Lab Results 11/07/23 11/07/23 14:21 14:35 WBC 7.71 RBC 5.69 Hgb 16.3 Hct 47.8 MCV 84.0 MCH 28.6 MCHC 34.1 RDW Std Deviation 38.6 RDW Coeff of Laury 12.6 Plt Count 273 MPV 11.1 Immature Gran % (Auto) 0.5 Neut % (Auto) 52.3 Lymph % (Auto) 38.3 Bleckley % (Auto) 6.7 Eos % (Auto) 1.6 Baso % (Auto) 0.6 Neut # (Auto) 4.03 Lymph # (Auto) 2.95 [place]ckley # (Auto) 0.52 Eos # (Auto) 0.12 Baso # (Auto) 0.05 Immature Gran # (Auto) 0.04 Sodium 137 Potassium 3.9 Chloride 103 Carbon Dioxide 25 Anion Gap 9 BUN 12 Creatinine 0.91 Est Cr Clr Drug Dosing 176.6 Est GFR ( Amer) 137.2 Est GFR (Non-Af Amer) 118.4 BUN/Creatinine Ratio 13.2 Glucose 150 H Calcium 9.6 Total Bilirubin 0.5 AST 74 H ALT 140 H Alkaline Phosphatase 99 Total Protein 7.3 Albumin 4.6 Globulin 2.7 Albumin/Globulin Ratio 1.7 TSH 3.088 Urine Color Dark Yellow Urine Appearance Clear Urine pH 5.5 Ur Specific [place] 1.030 Urine Protein Trace H Urine Glucose (UA) Negative Urine Ketones Negative Urine Blood Negative Urine Nitrite Negative Urine Bilirubin Negative Urine Urobilinogen Negative Ur Leukocyte Esterase Negative Urine WBC (Auto) 1-5 Urine RBC (Auto) 0-4 U Hyaline Cast (Auto) 1-5 U Epithel Cells (Auto) 10-20 H Urine Bacteria (Auto) Negative Salicylates < 3.0 L Urine Opiates Screen Neg Ur Methadone, Qual Neg Acetaminophen < 3 L Urine Barbiturates Neg Ur Phencyclidine (PCP) Neg U Amphetamin/Meth Scrn Neg MDMA (Ecstasy) Screen Neg U Benzodiazepines Scrn Neg Ur Cocaine Metabolite Neg U Marijuana (THC) Screen Pos H Ethyl Alcohol mg/dL < 10.0 SARS-CoV-2, RNA, NAAT NEGATIVE Hospital Course (1) Depression with suicidal ideation: at the time of discharged, the patient denied suicidal or homicidal ideations. He showed no signs of depression oriana or psychosis. (2) Borderline personality disorder: The patient and I were in agreement that he likely has borderline personality disorder. It is possible that his previous diagnosis of bipolar 2 disorder was an error. He shows good insight into this condition and is motivated to follow the primarily therapeutic treatment of borderline personality disorder. Plan 11/09/23 patient has been stabilized and is likely back at his baseline. He is tolerating his medications with no side effects. He no longer presents an imminent danger to self or others and is agreeable to discharge home today to follow-up with further treatment as an outpatient. Admit to psychiatric unit. Re-start psychiatric medication: Wellbutrin 150 daily and Abilfy 5 mg at bedtime. Participate in all milieu therapy; patient and I both suspect Borderline Personality Disorder may be contributing to his distress. Mental Health & Subst Abuse Tx Psychiatrist Name of Psychiatrist: [facility] Psychiatrist's Psychiatric Appointment Comment: Please call to schedule initial appointment. Psychiatrist Release of Information: Obtained, Reviewed and Signed Therapist Name of Therapist: [facility] Therapist's Therapy Appointment Comment: Please call to schedule initial appointment. Therapist Release of Information: Obtained, Reviewed and Signed Hydrologic Modeler Name of Hydrologic Modeler: N/A Post Discharge Appointments Primary Care Physician Name Of Family Doctor/PCP: [facility] Time of Appointment with PCP: [place] [address] Provider Appointment Comment: Please follow-up as needed. Contact Information Discharge Discharge Address: [address] [place] [phone] Discharge Plan Discharge Items Patient Disposition: Home - Self-Care Reason For Visit: MDD Discharge Diagnosis: Major Depressive Disorder Condition on Discharge: Good Health Concerns: Continue to take medications as prescribed and to follow up with the outpatient plan. Activity: Resume your previous activity Non-emergency contact: Primary Care Provider and Specialist Call non-emergency contact if: you have any medication questions and your symptoms worsen Follow-up/Referrals: [facility] [Primary Care Provider] - Diet: Regular Addtl Attending Provider Instructions: SPECIAL CARE INSTRUCTIONS: 1. Follow through with your scheduled aftercare appointments. If unable to keep an appointment, please call to reschedule. 2. Take your medication only as prescribed. Medication should not be changed or stopped without the approval of your doctor. In the event of worsening symptoms or concerns about side effects, contact your doctor immediately. 3. Utilize new healthy coping skills, anger management skills, and stress management skills learned during your hospitalization. Journal feelings and process them with a support person. Identify stressors or situations that may result in relapse, deterioration or inappropriate behaviors and develop a plan to deal with those issues. 4. If your coping skills are ineffective and you are in crisis, contact your outpatient providers for direction. If unable to reach your providers, please call the [facility] CRISIS LINE AT , go to the [facility] walk-in center at [address], [address], [place], or go to the closest Emergency Room. 5. Avoid alcohol and un-prescribed drugs. 6. You have been provided with the Mental Health Advance Directives Pamphlet for your review. 7. Your condition is stable for discharge to outpatient level of care, but recovery is an ongoing process. Ifthoughts to harm yourself or others return, follow the safety plan developed during your stay. Planning for a safe return home includes securing weapons. Our treatment team recommends weaponsbe removed from the home until your outpatient provider reassesses your progress. In rare cases where the items themselvescannot be removed, guns and ammunitionshould be secured separatelyand keys stored by a reliable personoutside of the home. If you were admitted on an involuntary commitment, the police or other legal authorities may be involved in this process. AFTERCARE APPOINTMENTS: * Please call your insurance company prior to your scheduled appointment to confirm your aftercare providers are covered. Take your insurance information to your appointments. WHO TO CALL AND WHEN: Medical Emergencies: For questions or emergencies related to your hospital stay, please contact the Inpatient Behavioral Health Unit at [phone]. A oncology rn is on-call 21/03 for the Behavioral Health Unit for emergencies At any time you feel your situation is an emergency, you may also call 911 immediately. Pending Studies at Discharge: No Stand-Alone Forms: [facility], Smoking Cessation Medications and DC Order Prescriptions: New bupropion HCl 150 mg Tablet Extended Release 24 Hr 150 mg PO QAM Qty: 30 0RF Continued Amina 180 mg tablet 180 mg PO 1XD Discharge Orders: Discharge Order (Routine); Ordered 11/09/23 Ordered By: Leona Warren Admission Data Admit Date/Time: 11/07/23 17:55 Attending Provider: Leona Warren Admit Provider: Leona Warren Primary Care Provider: [facility] Other Interventions: Discharge Summary Assessment (RN) Last Done: 11/09/23 10:51 C[place] [address] D/C day mgmt 30 min or < Patient Type Established History Expanded Problem Focused Exam Expanded Problem Focused Medical Decision Making Low Complexity Diagnoses Depression with suicidal ideation F32.A; R45.851 Borderline personality disorder F60.3 Time Spent (min) 25
[2023-11-12 13:17] LABS: Marijuana Quant, GCMS Urine 93 ng/mL (<5)
== END 2023-11-09 13:28 | disposition home or self-care (01) | DRG 881 ==
LOC: ED 14:04 → 3S 17:44